=== PATIENT | male | born 1995 | race Caucasian/White ===

== ENCOUNTER 2019-01-16 06:38 | Emergency (ER) | payer OTHER ==
[~2019-01-16] VITALS: Ht 175.3 cm; Wt 62.0 kg
[~2019-01-16 06:38] MED LIST: LORA0.5T PO
[2019-01-16 06:39] VITALS: BP 142/83; PULSE 75; RESP 18; Ht 175.3 cm; Wt 62.0 kg
[2019-01-16] MEDS ORDERED: AZIT250T PO (07:17)
[2019-01-16] MEDS ORDERED: IBUP-1542 PO (07:17)
--- NOTE | 2019-01-16 07:30 | ERD ---
ER Documentation Chief Complaint Chief Complaint pt is bib family with c/o right ear pain since last night HPI This is a 23-year-old male coming in for right ear pain for the last month but worsened this morning. Patient reports an 8 out of 10 nonradiating constant ear pain, sharp throbbing in nature. admits to runny nose. Patient denies dizziness, fever, chills, nausea, vomiting, cough, shortness of breath, headache. Patient took ibuprofen this morning with relief. patient reports taking [id number] eardrops without relief. allergy to penicillin ROS All systems reviewed and are negative except as per history of present illness. Medications Home Meds Active Scripts Ibuprofen* (Motrin*) 600 Mg Tab, 600 MG PO Q6, #30 TAB Prov:FRANKY DODSON PA-C 01/16/19 Azithromycin* (Zithromax*) 250 Mg Tablet, 250 MG PO .ZPACK DIRECTED, #6 TAB TAKE 500 MG (2 TABS) THE FIRST DAY THEN 250 MG (1 TAB) DAYS 2-5 Prov:FRANKY DODSON PA-C 01/16/19 Lorazepam* (Lorazepam*) 0.5 Mg Tablet, 0.5 MG PO HS PRN for ANXIETY for 15 Days, TAB Prov:KIKE CASAS 04/03/15 Allergies Allergies: Coded Allergies: Penicillins (Verified Allergy, Severe, 04/06/15) PMhx/Soc History of Surgery: Yes (BOTH EAR SURGERY) Anesthesia Reaction: No Hx Neurological Disorder: No Hx Respiratory Disorders: No Hx Cardiac Disorders: No Hx Psychiatric Problems: No Hx Miscellaneous Medical Probl: No Hx Alcohol Use: No Hx Substance Use: No Hx Tobacco Use: No FmHx Family History: No diabetes Physical Exam Vitals Vital Signs Date Temp Pulse Resp B/P (MAP) Pulse Ox O2 O2 Flow FiO2 Time Delivery Rate 01/16/19 99.1 75 18 142/83 99 06:39 (102) Physical Exam Const: No acute distress Head: Atraumatic Eyes: Normal Conjunctiva ENT: Normal External Ears, Nose and Mouth. Right auditory canal clear right tympanic membrane bulging mildly erythematous and purulent, left auditory canal clear, membrane left tympanic membrane is unremarkable, oropharynx is clear with no tonsilar exudate erythema, no kissing tonsils, no uvula deviation, normal nasal mucosa Neck: Full range of motion. No meningismus. Resp: Clear to auscultation bilaterally no wheezes rhonchi, rales Cardio: Regular rate and rhythm, no murmurs no gallops or rubs Ext: No cyanosis, or edema Neur: Awake and alert Psych: Normal Mood and Affect Procedures/MDM ER COURSE: The patient was stable throughout ED course. I kept the patient and/or family informed of laboratory and diagnostic imaging results throughout the emergency room course. The patient was promptly evaluated and a treatment plan was devised based on H&P and other data. This plan was discussed with the patient who agreed and had no further questions or concerns prior to discharge. MEDICAL DECISION MAKIN-year-old male coming in for right ear pain x1 month that worsened this morning. Physical exam is remarkable for a right otitis media. Treat patient with antibiotics. At this time there is no evidence of ENT emergency. No evidence of sepsis, meningitis, mastoiditis. Patients vitals are stable. Patient is non tachypnic, non tachycardic, afebrile, an well appearing. patient can be managed with close outpatient follow up. advised to follow up with primary care in the next 48 hours. return to ed with any worsening symptoms. DISPOSITION PLAN: We discussed follow up with the patient's primary care doctor within 24 to 48 hours. Patient counseled regarding my diagnostic impression and care plan. Prior to discharge all questions answered. Pt agrees with treatment plan and understands strict return precautions. Precautionary instructions provided including instructions to return to the ER if not improving or for any worsening or changing symptoms or concerns. ExitCare instructions provided. Prior to discharge, patients vital signs have been reviewed SPECIALIST FOLLOW UP RECOMMENDED: None Patient has been advised to follow up with primary care in 1-2 days. Disclaimer: Inadvertent spelling and grammatical errors are likely due to EHR/dictation software use and do not reflect on the overall quality of patient care. Also, please note that the electronic time recorded on this note does not necessarily reflect the actual time of the patient encounter. Departure Diagnosis: Primary Impression: Right otitis media Otitis media type: unspecified Qualified Codes: H66.91 - Otitis media, unspecified, right ear Condition: Stable Patient Instructions: Otitis Media, Abx Tx (Adult) Referrals: COMMUNITY CLINICS YOU HAVE RECEIVED A MEDICAL SCREENING EXAM AND THE RESULTS INDICATE THAT YOU DO NOT HAVE A CONDITION THAT REQUIRES URGENT TREATMENT IN THE EMERGENCY DEPARTMENT. FURTHER EVALUATION AND TREATMENT OF YOUR CONDITION CAN WAIT UNTIL YOU ARE SEEN IN YOUR DOCTORS OFFICE WITHIN THE NEXT 1-2 DAYS. IT IS YOUR RESPONSIBILITY TO MAKE AN APPOINTMENT FOR FOLOW-UP CARE. IF YOU HAVE A PRIMARY DOCTOR --you should call your primary doctor and schedule an appointment IF YOU DO NOT HAVE A PRIMARY DOCTOR YOU CAN CALL OUR PHYSICIAN REFERRAL HOTLINE AT IF YOU CAN NOT AFFORD TO SEE A PHYSICIAN YOU CAN CHOSE FROM THE FOLLOWING [facility] [address] [facility] [address] [facility] [facility] [address] [facility] [address] [facility] [address] [facility]. [facility] [address] Additional Instructions: Patient advised to return to the ED immediately for new or worsening symptoms. Patient advised to follow up with primary care provider in the next 24-48 hours. Patient verbalized understanding and agrees with treatment plan and course of action. If patient has no primary care they may follow up with one of the [facility] clinics listed on the following page or one of the options listed below [facility] [address] [place] [id number] or [facility] [address] [place] [address] or [facility] [address] [place] [address] FRANKY DODSON PA-C January 16, 2019 07:29
== END 2019-01-16 07:22 | disposition home or self-care (01) ==
LOC: FTE 06:38
DX: H66.91 Otitis media, unspecified, right ear (principal)
CPT/HCPCS: 99283